=== PATIENT | female | born 1985 | race Caucasian/White ===

== ENCOUNTER 2019-12-29 17:52 | Emergency (ER) | payer OTHER ==
[~2019-12-29] VITALS: Ht 172.7 cm; Wt 114.3 kg
== END 2019-12-29 19:26 | disposition home or self-care (01) ==
LOC: ED 17:52
DX: S92.212A Displaced fracture of cuboid bone of left foot, initial encounter for closed fracture (principal); X58.XXXA Exposure to other specified factors, initial encounter
CPT/HCPCS: 73630; 99283-25; A9270